=== PATIENT | female | born 1955 | race Two or more races ===

== ENCOUNTER 2021-03-25 06:00 | Day surgery (SDC) | payer OTHER ==
[~2021-03-25 06:00] MED LIST: CALTRATE 600 +1 EACH PO; CENTRUM MU9 MG/15 ML PO; COZAAR25 MG PO; EVISTA60 MG; LIPO-FLAVONOID1 EACH PO; PLAVIX75 MG PO; ZOCOR40 MG PO
[2021-03-25] MEDS ORDERED: PERCOCET 5-3251 EACH PO (14:25)
== END 2021-03-25 18:10 | disposition home or self-care (01) ==
LOC: CIR.AMB 06:00
PROVIDERS: ATTEND Surgery
DX: K64.4 Residual hemorrhoidal skin tags (principal); K64.8 Other hemorrhoids; Z20.822 Contact with and (suspected) exposure to COVID-19